=== PATIENT | male | born 1955 | race Caucasian/White ===

== ENCOUNTER → 2023-06-10 | Outpatient (CLI) | payer MEDICARE, OTHER, SELFPAY ==
[2023-06-10 11:06] LABS: D-Dimer Quantitative (DVT/PE) 0.62 FEU/ug/m (0.27-0.49)
== END | disposition home or self-care (01) ==
LOC: LABSPEC 10:33
PROVIDERS: PCP Family Medicine; Referring Provider Family Medicine; Visit Provider Family Medicine
DX: R06.02 Shortness of breath (principal); R07.89 Other chest pain
CPT/HCPCS: 85379

== ENCOUNTER → 2023-07-06 | Outpatient (CLI) | payer MEDICARE, OTHER, SELFPAY ==
[2023-07-06] MEDS: Methacholine Chloride 18 ml neb kit INHALATION (07:15)
--- NOTE | 2023-07-07 08:10 | BRONCHALL ---
Bronchoprovocation Challenge Bronchoprovocation Challenge Bronchoprovocation Challenge: INTRODUCTION: The patient is a 67-year-old male that presents for a bronchoprovocation challenge secondary to a diagnosis of chest discomfort. Respiratory therapy reported good patient effort. INTERPRETATION: Initial spirometry did not show any large airways obstructive ventilatory defect with preserved airflows throughout. The patient was then given progressively increasing doses of methacholine in a standardized fashion. With testing, the patient did not demonstrate a significant drop in FEV1. IMPRESSION: Negative methacholine inhalation challenge.
== END | disposition home or self-care (01) ==
LOC: PSN 06:57
PROVIDERS: PCP Family Medicine
DX: R06.09 Other forms of dyspnea (principal); R07.89 Other chest pain
CPT/HCPCS: 94070; 95070

== ENCOUNTER → 2025-04-03 | Outpatient (CLI) | payer MEDICARE, OTHER, SELFPAY ==
--- NOTE | 2025-04-03 08:51 | CDU_ITS ---
Reason For Study Reason For Study: Retinal Artery Occlusion Rt. Velocities/BP Lt. Velocities/BP Prox CCA 82.0/18.1 cm/sec. Prox CCA 100.3/16.3 cm/sec. Mid CCA 89.3/16.3 cm/sec. Mid CCA 70.2/20.8 cm/sec. Dist CCA 73.2/17.1 cm/sec. Dist CCA 66.9/17.5 cm/sec. Prox ICA 45.9/15.7 cm/sec. Prox ICA 107.6/27.2 cm/sec. Mid ICA 61.5/23.2 cm/sec. Mid ICA 84.6/34.3 cm/sec. Dist ICA 103.4/30.3 cm/sec. Dist ICA 66.3/28.8 cm/sec. Rt. ICA/CCA = 1.2. Lt. ICA/CCA = 1.5. Prox ECA 90.4/3.2 cm/sec. Prox ECA 120.5/8.6 cm/sec. Rt. Vert. 50.0/13.1 cm/sec. Lt. Vert. 37.6/10.6 cm/sec. Right Extracranial There is intimal thickening but no significant atherosclerotic plaque noted in the right common carotid artery. There is heterogeneous, irregular atherosclerotic plaque noted in the right internal carotid artery. There is intimal thickening but no significant atherosclerotic plaque noted in the right external carotid artery. Antegrade flow is noted in the right vertebral artery. Left Extracranial There is homogeneous, smooth atherosclerotic plaque noted in the left common carotid artery. There is heterogeneous, irregular atherosclerotic plaque noted in the left internal carotid artery. There is intimal thickening but no significant atherosclerotic plaque noted in the left external carotid artery. Antegrade flow is noted in the left vertebral artery. Procedure Carotid Duplex [id number]. This is a Carotid Duplex examination using B-mode, color flow and specral Doppler. The exam was diagnostic. Exam performed in department. VL/Carotid Duplex Ultrasound Interpretation Summary Mild (<50%) stenosis right extracranial internal carotid. Mild (<50%) stenosis left extracranial internal carotid. Flow within the vertebral arteries is antegrade bilaterally. Ordering Physician: Mushtaq Ann Referring Physician: Jose Enrique Andrews Performed By: Aly Tyson RVT
== END | disposition home or self-care (01) ==
LOC: CVS 08:49
PROVIDERS: PCP Family Medicine; Referring Provider Ophthalmology; Visit Provider Ophthalmology
DX: H34.212 Partial retinal artery occlusion, left eye (principal)
CPT/HCPCS: 93880